=== PATIENT | male | born 1995 | race African-American/Black ===

== ENCOUNTER 2018-11-16 12:53 | Emergency (ER) | payer OTHER, SELFPAY ==
[~2018-11-16 12:53] MED LIST: ISOVUE-370 76%-LOCM 1 ML ONE
[2018-11-16] MEDS ORDERED: Ondansetron PF 4 MG/2 ML Vial ONE (13:17)
[2018-11-16 13:48] LABS: #Basophils 0.1 thou/uL (0.0-0.2); #Eosinphils 0.1 thou/uL (0.0-0.7); #Lymphocytes 2.6 thou/uL (1.20-3.40); #Monocytes 0.7 thou/uL (0.11-0.59); #Neutrophils 5.6 thou/uL (1.40-6.50); %Basophils 1.4 % (0.0-1.0); %Eosinophils 0.7 % (0.0-10.0); %Lymphocytes 28.9 % (28.0-48.0); %Monocytes 7.5 % (0.0-4.0); %Neutrophils 61.6 % (31.0-61.0); Hemoglobin 16.7 g/dL (14.0-18.0); Mean Corpuscular HGB CONC 32.4 g/dL (32.0-36.0); Mean Corpuscular Hemoglobin 28.1 pg (25.0-35.0); Mean Corpuscular Volume 86.7 fL (78.0-98.0); Mean Platelet Volume 7.6 fL (7.4-10.4); Platelet Count 299 thou/uL (130-400); RBC Distribution Width 11.7 % (11.5-14.5); Red Blood Cell (RBC) Count 5.96 mill/uL (4.00-5.20); White Blood Cell (WBC) Count 9.1 thou/uL (4.8-10.8)
--- NOTE | 2018-11-16 13:48 | RAD ---
XR Chest 1 View Portable History: Chest pain Comparison: None. Findings: Mild dextro scoliosis midthoracic spine measuring 21 degrees. Lungs are clear. No pneumotho rax. No effusion. No acute osseous abnormality. Impression: 1. No acute intrathoracic abnormality. 2. 21 degree-scoliosis midthoracic spine.
[2018-11-16 13:59] LABS: ALT (SGPT) 303 U/L (8-55); AST (SGOT) 105 U/L (5-34); Albumin 4.9 g/dL (3.5-5.0); Alkaline Phosphatase 111 U/L (Less than 750); Anion Gap 16 mmol/L (10-20); BUN (Urea Nitrogen) 10 mg/dL (8.9-20.6); Bilirubin, Total 0.6 mg/dL (0.2-1.2); Calc. Creatinine Clearance 0 mL/min (70-130); Calcium 10.4 mg/dL (7.8-10.44); Carbon Dioxide 23 mmol/L (22-29); Chloride 101 mmol/L (98-107); Estimated GFR-MDRD Greater than 90; Globulin 3.4 g/dL (2.4-3.5); Glucose 114 mg/dL (70-105); Magnesium 2.4 mg/dL (1.7-2.2); Potassium 3.9 mmol/L (3.5-5.1); Protein, Total 8.3 g/dL (6.0-8.3); Sodium 136 mmol/L (136-145)
[2018-11-16 14:16] LABS: Free T4 (Free Thyroxine) 1.09 ng/dL (0.70-1.48)
[2018-11-16] MEDS ORDERED: Diazepam 5 MG TAB ONE (15:10)
--- NOTE | 2018-11-16 17:52 | CT ---
Exam: CT angiogram of the chest HISTORY: Syncope. Tachycardia COMPARISON: None TECHNIQUE: CT angiogram of the chest is performed in the axial plane. Three-dimensional reformatted i mages are submitted for interpretation FINDINGS: Mediastinum: No mass, lymphadenopathy or hematoma. HEART: Normal size. No significant pericardial fluid. Aorta: No aneurysm or dissection Upper solid abdominal viscera: No abnormality enhancement. Trachea and central bronchi: Patent Pleural spaces: No effusion Lung parenchyma: No masses or consolidation. Pneumothorax: None Osseous structures: No lytic or blastic lesions Pulmonary arteries: Adequate contrast opacification pulmonary arterial system to the level of segment al arteries. No filling defect to suggest pulmonary embolism IMPRESSION:No evidence of pulmonary artery embolism to the level of the segmental arteries.
== END 2018-11-16 18:50 | disposition home or self-care (01) ==
LOC: ERS 12:53
DX: R55 Syncope and collapse (principal); R00.0 Tachycardia, unspecified; R94.5 Abnormal results of liver function studies
CPT/HCPCS: 71045; 71275; 80053; 82550; 83735; 84439; 84443; 84484; 85025; 85379; 93005; 96361; 96374; J2405; Q9966